=== PATIENT | female | born 1980 | race Caucasian/White ===

== ENCOUNTER 2019-04-20 02:07 | Emergency (ER) | payer SELFPAY ==
[~2019-04-20] VITALS: Ht 154.9 cm; Wt 65.8 kg
[2019-04-20 03:34] VITALS: BP 117/65
== END 2019-04-20 03:41 | disposition home or self-care (01) ==
LOC: ED 03:29
DX: G44.211 Episodic tension-type headache, intractable (principal); R11.2 Nausea with vomiting, unspecified
CPT/HCPCS: 96374; 96375; 99283; J0780; J1200; J1885

== ENCOUNTER 2020-08-12 01:36 | Emergency (ER) | payer SELFPAY ==
[~2020-08-12] VITALS: Ht 139.7 cm; Wt 69.0 kg
--- NOTE | 2020-08-12 02:03 | NUR ---
COVID SWAB COLLECTED BY PROVIDER.
[2020-08-12] MEDS ORDERED: IBUPROFEN 600 MG TABLET ONE (02:29)
[2020-08-12] MEDS ORDERED: IBUPROFEN 200 MG TABLET PO ONE (02:30)
[2020-08-12 02:35] VITALS: BP 87/52
== END 2020-08-12 03:02 | disposition home or self-care (01) ==
LOC: ED 02:00
DX: U07.1 COVID-19 (principal); J06.9 Acute upper respiratory infection, unspecified; J12.9 Viral pneumonia, unspecified; R07.89 Other chest pain
CPT/HCPCS: 71045; 87635; 93005; 99285